=== PATIENT | male | born 2005 | race Caucasian/White ===

== ENCOUNTER 2025-05-10 20:46 | Outpatient (CLI) | payer OTHER, SELFPAY | END 2025-05-10 20:47 | disposition home or self-care (01) | PROVIDERS: Visit Provider Student in an Organized Health Care Education/Training Program | DX: R56.9 Unspecified convulsions (principal); R51.9 Headache, unspecified; H53.8 Other visual disturbances | CPT/HCPCS: A0425; A0427 ==